=== PATIENT | male | born 1980 | race Caucasian/White ===

== ENCOUNTER 2017-10-29 15:07 | Emergency (ER) | payer SELFPAY ==
--- NOTE | 2017-10-29 15:10 | PDOC ---
History of Present Illness <Jackie Cruz - Last Filed: 10/29/17 15:38> - General History Source: Patient Exam Limitations: No Limitations - History of Present Illness Initial Comments: 10/29/17 15:35 The patient is a 37 year old male with no significant past medical history who presents to the ED s/p finger laceration earlier today. The patient reports he was moving items out of his house when a piece of metal cut into his left 2nd digit. Patient reports pain and bleeding to his left 2nd digit. Denies fever or chills. Denies focal numbness, weakness or tingling. Denies any other symptoms. <Nara Conway - Last Filed: 10/29/17 15:44> - General Chief Complaint: Laceration Stated Complaint: LEFT 2ND FINGER Time Seen by Provider: 10/29/17 15:10 Past History <Jackie Cruz - Last Filed: 10/29/17 15:38> <Nara Conway - Last Filed: 10/29/17 15:44> - Past Medical History Allergies/Adverse Reactions: Allergies Allergy/AdvReac Type Severity Reaction Status Date / Time No Known Allergies Allergy Verified 10/29/17 15:08 Home Medications: Ambulatory Orders NK [No Known Home Medication] 10/29/17 Review of Systems - Review of Systems Able to Perform ROS?: Yes Comments:: 10/29/17 15:36 GENERAL/CONSTITUTIONAL: No fever or chills. No weakness. HEAD, EYES, EARS, NOSE AND THROAT: No change in vision. No ear pain or discharge. No sore throat. MUSCULOSKELETAL: No joint or muscle swelling or pain. No neck or back pain. SKIN: + finger laceration. No rash NEUROLOGIC: No headache, vertigo, loss of consciousness, or change in strength/ sensation. <Nara Conway - Last Filed: 10/29/17 15:44> *Physical Exam - Vital Signs Last Vital Signs Temp Pulse Resp BP Pulse Ox 98.7 F 89 16 158/107 99 10/29/17 15:08 10/29/17 15:08 10/29/17 15:08 10/29/17 15:08 10/29/17 15:08 - Physical Exam Comments: 10/29/17 15:44 GENERAL: Awake, alert, and fully oriented, in no acute distress HEAD: No signs of trauma NECK: Normal ROM, supple, no lymphadenopathy, JVD, or masses LUNGS: Breath sounds equal, clear to auscultation bilaterally. No wheezes, and no crackles HEART: Regular rate and rhythm, normal S1 and S2, no murmurs, rubs or gallops EXTREMITIES: Normal range of motion, no edema. No clubbing or cyanosis. No cords, erythema, or tenderness NEUROLOGICAL: Normal speech SKIN: + 1.5 cm laceration to the left index finger, on the dorsal surface overlying proximal phalanx, no tendon involvement, no foreign body. Warm, Dry, normal turgor, no rashes. <Nara Conway - Last Filed: 10/29/17 15:44> Procedures - Laceration/Wound Repair Left Finger 2nd digit Wound Length: to 2.5 cm Wound Explored: clean, no foreign body present Wound's Depth, Shape: superficial, linear, contused tissue Irrigated w/ Saline: Yes Anesthesia: 1% Lidocaine Amount of Anesthetic (ccs): 2 Wound Repaired With: Sutures Suture Size/Type: 4:0, nylon Number of Sutures: 4 Layer Closure: No Sterile Dressing Applied: Yes <Jackie Cruz - Last Filed: 10/29/17 15:38> *DC/Admit/Observation/Transfer - Discharge Dispostion Admit: No <Jackie Cruz - Last Filed: 10/29/17 15:38> - Attestations Scribe Attestion: 10/29/17 15:36 Documentation prepared by Nara Conway, acting as medical and health services manager for Jackie Cruz MD, <Nara Conway - Last Filed: 10/29/17 15:44> Diagnosis at time of Disposition: Finger laceration Qualifiers: Encounter type: initial encounter Finger: index finger Damage to nail status: without damage Foreign body presence: without foreign body Laterality: left Qualified Code(s): S61.211A - Laceration without foreign body of left index finger without damage to nail, initial encounter - Discharge Dispostion Disposition: HOME Condition at time of disposition: Improved - Patient Instructions Printed Discharge Instructions: DI for Laceration Repair Additional Instructions: Keep the wound dry for 48 hours. After that it is ok to get it wet. Do not apply any lotions, creams, or soaps, as they may cause the stitches to slip. Keep a piece of gauze in place to keep it dry and clean. Wear gloves when working with your hands. Return to the ER between 11/07-11/09 to have the stitches removed. Return immediately if they are red, swollen, or draining pus.
[2017-10-29 15:19] VITALS: BP 158/107; PULSE 89; TEMP 98.7; BMI 29.9
[2017-10-29] MEDS ORDERED: DIPHTH,PERTUSS(ACELL),TET 0.5 ML DISP.SYRIN IM ONE (15:39)
== END 2017-10-29 15:48 | disposition home or self-care (01) ==
LOC: FER 15:07
PROC: 0HQGXZZ Repair Left Hand Skin, External Approach (ICD-10-PCS; principal; 2017-10-29)
PROC: 3E0234Z Introduction of Serum, Toxoid and Vaccine into Muscle, Percutaneous Approach (ICD-10-PCS; 2017-10-29)
DX: S61.211A Laceration without foreign body of left index finger without damage to nail, initial encounter (principal); W45.8XXA Other foreign body or object entering through skin, initial encounter; Y93.89 Activity, other specified; Y92.094 Garage of other non-institutional residence as the place of occurrence of the external cause
CPT/HCPCS: 90715; 99282-25